=== PATIENT | female | born 1995 | race American Indian/Alaskan Native ===

== ENCOUNTER 2018-07-22 04:27 | Emergency (ER) | payer SELFPAY ==
[2018-07-22] MEDS ORDERED: NACL 0.9% 1000 ML 1,000 ML IV ONE ×2 (04:40→05:46)
[2018-07-22 04:57] LABS: Basophils % (Auto) 0.2 % (0.0-1.8); Eosinophils # (Auto) 0.1 K/mm3 (0.0-0.4); Eosinophils % (Auto) 0.4 % (0.0-4.3); Hematocrit 41.1 % (30.3-42.9); Hemoglobin 13.6 gm/dl (10.1-14.3); Lymphocytes # (Auto) 2.7 K/mm3 (1.2-5.4); Mean Corpuscular HGB Conc 33 % (30-34); Mean Corpuscular Volume 95 fl (79-97); Monocytes % (Auto) 5.8 % (0.0-7.3); Platelet Count 334 K/mm3 (140-440); Red Blood Count 4.34 M/mm3 (3.65-5.03); Red Cell Distribution Width 13.9 % (13.2-15.2)
[2018-07-22 05:19] LABS: Alanine Aminotransferase 12 units/L (7-56); Albumin 4.2 g/dL (3.9-5); BUN/Creatinine Ratio 21; Blood Urea Nitrogen 15 mg/dL (7-17); Calcium 9.1 mg/dL (8.4-10.2); Hemolysis Index 6
[2018-07-22] MEDS ORDERED: MORPHINE IV STA ×2 (05:46→06:48)
[2018-07-22] MEDS ORDERED: ZOFRAN IV STA (05:46)
[2018-07-22] MEDS ORDERED: TORADOL IV STA (06:47)
[2018-07-22] MEDS ORDERED: TORADOL ONE (06:50)
[2018-07-22] MEDS ORDERED: MORPHINE IV ONE (06:51)
[2018-07-22] MEDS ORDERED: TORADOL IV ONE (06:51)
--- NOTE | 2018-07-22 06:51 | Cat Scan Report ---
FINAL REPORT EXAM: CT ABDOMEN PELVIS W CON HISTORY: SEVERE Lower ABD Pain TECHNIQUE: CT images are acquired through the Abdomen and Pelvis in venous and delayed phases follow ing intravenous administration contrast. reformations are provided. PRIORS: None FINDINGS: Partially visualized intrathoracic contents are unremarkable. The liver, gallbladder, pancreas, spleen, and adrenal glands are unremarkable. Kidneys show no worrisome lesions, hydronephrosis, or calculi. Urinary bladder is unremarkable. Antev erted uterus. No significant free fluid in the pelvis. Small and large bowel are normal in caliber. Appendix is normal. No free air, free fluid, or lymphade nopathy identified. Aorta is normal in course and caliber. Superficial soft tissues are unremarkable. No acute or aggressive appearing skeletal findings. IMPRESSION: No acute findings in the abdomen or pelvis. If there is concern for gynecologic etiology of patient's pain, consider follow-up ultrasound.
[2018-07-22 07:34] LABS: Bilirubin,Urine NEG (Negative); Blood,Urine SM (Negative); Color,Urine Straw (Yellow); Mucus,Urine FEW /HPF; Protein,Urine <15 mg/dL mg/dL (Negative); Urobilinogen,Urine < 2.0 mg/dL (<2.0)
--- NOTE | 2018-07-22 09:47 | Ultrasound Report ---
ULTRASOUND PELVIC COMPLETE ULTRASOUND TRANSVAGINAL HISTORY: Pelvic pain. COMPARISON: CT abdomen pelvis with contrast performed the same day. TECHNIQUE: Transabdominal and transvaginal ultrasound with color doppler interrogation. FINDINGS: Uterus: The uterus is anteverted. The uterus measures 7.4 x 3.8 x 4.2 cm. No uterine mass is identified. Normal cervix. Endometrium: 3 mm. No fluid collection or mass. Right ovary: 2.8 x 2.3 x 2.3 cm. Normal follicles are identified. Left ovary: 3.3 x 2.0 x 2.1 cm. Normal follicles are identified. No pelvic fluid or mass is identified. Normal color doppler interrogation. IMPRESSION: Unremarkable transabdominal and transvaginal pelvic ultrasounds.
--- NOTE | 2018-07-22 10:12 | Emergency Department Report ---
HPI - General Chief Complaint: Abdominal Pain Time Seen by Provider: 07/22/18 05:44 - HPI HPI: This is a 22-year-old female with no prominent medical history presents to ED complaining of lower abdominal pain started this morning. Patient states that his leg aching and throbbing pain localized to her lower abdomen/pelvic region. Patient states that she is on her cycle for her over a week and states that this is longer than usually. Patient states he. Is usually only lasts about 5-6 days. Patient states her cycle started 06/17/2018. She states that now spotting. She denies fever/nausea/vomiting/diarrhea/chest pain/dysuria ED Past Medical Hx - Past Medical History Previous Medical History?: Yes Hx Headaches / Migraines: Yes Additional medical history: Insomnia - Surgical History Past Surgical History?: No - Social History Smoking Status: Never Smoker Substance Use Type: None - Medications Home Medications: Home Medications Medication Instructions Recorded Confirmed Last Taken Type HYDROcodone/APAP 5-325 [[place] 1 each PO Q6HR PRN #12 tablet 06/18/18 Unknown Rx 5/325] traMADol [Ultram 50 MG tab] 50 mg PO Q6HR PRN #20 tablet 07/22/18 Unknown Rx ED Review of Systems ROS: Stated complaint: POSSIBLY Other details as noted in HPI Comment: All other systems reviewed and negative Physical Exam - Physical Exam Vital Signs: Vital Signs 07/22/18 07/22/18 07/22/18 04:35 06:38 07:15 Temperature 99.6 F Pulse Rate 103 H Respiratory 18 18 18 Rate Blood Pressure 118/86 Blood Pressure [Right] O2 Sat by Pulse 99 Oximetry 07/22/18 07/22/18 08:18 08:58 Temperature 99.8 F H Pulse Rate 103 H Respiratory 18 18 Rate Blood Pressure Blood Pressure 118/68 [Right] O2 Sat by Pulse 98 100 Oximetry Physical Exam: GENERAL: Alert and oriented x3, no apparent distress, Normal Gait, atraumatic. MOUTH:Mouth is well hydrated and without lesions. Tonsils nonerythematous or swollen, Uvula midline, Tongue not elevated. Mucous membranes are moist. Posterior pharynx clear, no exudate or lesions. Patent airways. NECK: Supple. Non edematous, No carotid bruits. No lymphadenopathy or thyromegaly. No C-spine tenderness LUNGS: Symetrical with respiration, No wheezing, no rales or crackles, CTAB. HEART: S1, S2 present, regular rate and rhythm without murmur, no rubs, no gallops. Non tender to palpation ABDOMEN: No organomegaly was noted,Positive bowel sounds, soft, and non- distended. Nontender to palpation on all Quadrants, NO CVA tenderness. SKIN: Warm and dry, No lesions, No ulceration or induration present. ED Course Vital Signs 07/22/18 07/22/18 07/22/18 04:35 06:38 07:15 Temperature 99.6 F Pulse Rate 103 H Respiratory 18 18 18 Rate Blood Pressure 118/86 Blood Pressure [Right] O2 Sat by Pulse 99 Oximetry 07/22/18 07/22/18 08:18 08:58 Temperature 99.8 F H Pulse Rate 103 H Respiratory 18 18 Rate Blood Pressure Blood Pressure 118/68 [Right] O2 Sat by Pulse 98 100 Oximetry ED Medical Decision Making - Lab Data Result diagrams: 07/22/18 04:42 07/22/18 04:42 - Radiology Data Radiology results: report reviewed, image reviewed cc: AKILAH SHETH ULTRASOUND PELVIC COMPLETE ULTRASOUND TRANSVAGINAL HISTORY: Pelvic pain. COMPARISON: CT abdomen pelvis with contrast performed the same day. TECHNIQUE: Transabdominal and transvaginal ultrasound with color doppler interrogation. FINDINGS: Uterus: The uterus is anteverted. The uterus measures 7.4 x 3.8 x 4.2 cm. No uterine mass is identified. Normal cervix. Endometrium: 3 mm. No fluid collection or mass. Right ovary: 2.8 x 2.3 x 2.3 cm. Normal follicles are identified. Left ovary: 3.3 x 2.0 x 2.1 cm. Normal follicles are identified. No pelvic fluid or mass is identified. Normal color doppler interrogation. IMPRESSION: Unremarkable transabdominal and transvaginal pelvic ultrasounds. Transcribed By: TTR Dictated By: ASAF GODINEZ JR, MD Electronically Authenticated By: ASAF GODINEZ JR, MD Signed Date/Time: 07/22/18 0944 - Medical Decision Making 22-year-old female presents with chronic pelvic pain. This is mostly due to dysmenorrhea. As patient is on her cycle Discussed follow-up with flight physician. Ultrasound shows no acute findings. Chest x-ray shows no acute findings Lab for shows no abnormalities I discussed all this findings with the patient. Vital signs are normal she is in no acute respiratory or distress Critical care attestation.: If time is entered above; I have spent that time in minutes in the direct care of this critically ill patient, excluding procedure time. ED Disposition Clinical Impression: Abdominal pain, Dysmenorrhea Disposition: TO HOME OR SELFCARE Is pt being admited?: No Does the pt Need Aspirin: No Condition: Stable Instructions: Dysmenorrhea (ED), Chronic Pelvic Pain in Women (ED), Abdominal Pain (ED) Additional Instructions: Make sure to follow up with the flight physician as discussed. Take all your medications as you've been prescribed. If you have any worsening symptoms or develop new symptoms please return to ED immediately. Prescriptions: traMADol [Ultram 50 MG tab] 50 mg PO Q6HR PRN #20 tablet PRN Reason: Pain Referrals: LIN ESTRADA MD [Primary Care Provider] - 3-5 Days [facility] [Provider Group] - 3-5 Days Forms: Accompanied Note, Work/School Release Form(ED) Time of Disposition: 11:17
[2018-07-22 11:44] VITALS: BP 114/70
== END 2018-07-22 11:42 | disposition home or self-care (01) ==
LOC: ED 04:27
DX: N94.6 Dysmenorrhea, unspecified (principal); G43.909 Migraine, unspecified, not intractable, without status migrainosus; G47.00 Insomnia, unspecified; Z88.0 Allergy status to penicillin; Z88.1 Allergy status to other antibiotic agents
CPT/HCPCS: 36415; 74177; 76830; 76856; 80053; 81001; 84703; 85025; 96374; 96375; 96376; 99284; J1885; J2270; J2405; J7030; Q9967